=== PATIENT | female | born 1995 | race African-American/Black ===

== ENCOUNTER 2017-06-05 11:32 | Emergency (ER) | payer OTHER ==
[2017-06-05] MEDS ORDERED: Ketorolac INJ* 60 MG/2 ML VIAL IM ONE (13:47)
[2017-06-05] MEDS ORDERED: HYDROcodone/ACETAMIN 5-325 MG* 1 TAB PO ONE (13:47)
--- NOTE | 2017-06-05 13:59 | ED ---
Throat Pain/Nasal Congestion - HPI Summary HPI Summary: Pt here w/ Lt face swelling and pain x 5 days. Saw PCP 2 days ago and started on clindamycin. No relief. Tastes something in her mouth. Feels pain moving into ear and neck here - associated DELEON. Chills and "hotflashes" - no oscar fever to report. Not eating much d/t pain - drinking water. No trouble swallowing or breathing. Denies dental prior to event or now. Tried ibuprofen, acetaminophen and tea bag compress in mouth over affected tissue w/o relief. She had some left over tylenol #3 which helped some. - History of Current Complaint Chief Complaint: EDDentalPain Time Seen by Provider: 06/05/17 13:31 Hx Obtained From: Patient - Allergies/Home Medications Allergies/Adverse Reactions: Allergies Allergy/AdvReac Type Severity Reaction Status Date / Time No Known Allergies Allergy Verified 06/26/16 19:48 PMH/Surg Hx/FS Hx/Imm Hx Previously Healthy: Yes Respiratory History: Reports: Hx Asthma - well controlled, Hx Seasonal Allergies - takes anti-histamines PRN Sensory History: Denies: Hx Contacts or Glasses Opthamlomology History: Denies: Hx Contacts or Glasses Infectious Disease History: No Infectious Disease History: Denies: Traveled Outside the [place] in Last 30 Days - Family History Known Family History: Positive: Unknown - Social History Occupation: Employed Part-time Lives: Alone Alcohol Use: Rare - last drink > 1 year ago Hx Substance Use: No Substance Use Type: Reports: None Hx Tobacco Use: Yes Length of Time of Smoking/Using Tobacco: "couple black and mild occassionally" Review of Systems Constitutional: Other - see HPI Eyes: Negative - no ocular pain Negative: Drainage, Erythema ENT: Other - see HPI Negative: Chest Pain Negative: Shortness Of Breath Gastrointestinal: Other - see HPI Positive: Vomiting - 2 x, Nausea Positive: no symptoms reported Negative: Rash Positive: Headache - see HPI. Negative: Weakness, Paresthesia, Numbness Positive: Anxious All Other Systems Reviewed And Are Negative: Yes Physical Exam Triage Information Reviewed: Yes Vital Signs On Initial Exam: Initial Vitals Temp Pulse Resp BP Pulse Ox 98.4 F 68 20 135/74 97 06/05/17 11:40 06/05/17 11:40 06/05/17 11:40 06/05/17 11:40 06/05/17 11:40 Vital Signs Reviewed: Yes Appearance: Positive: Well-Appearing, Well-Nourished, Pain Distress Skin: Positive: Warm, Dry - no facial erythema but does have mild edema of Lt cheek region (mild bunting of nasolabial crease) Head/Face: Positive: Other - see above Eyes: Positive: Normal, EOMI, ESTEPHANIA, Conjunctiva Clear. Negative: Conjunctiva Inflammed, Discharge ENT: Positive: Hearing grossly normal, Pharynx normal - handling secretions well , TMs normal. Negative: Nasal congestion, Nasal drainage Dental: Positive: Gross Decay/Caries @ - #13 missing - pt reports h/o root canal - tooth fell out after eating chicken last month, Abscess @ - Lt upper maxilla between gingiva and buccal mucosa - fullness w/ bogginess- TTP Neck: Positive: Supple, No Lymphadenopathy, Tenderness @ - Lt side (mild) Respiratory/Lung Sounds: Positive: Clear to Auscultation, Breath Sounds Present. Negative: Stridor, Unable to speak in full sentences Cardiovascular: Positive: Normal Musculoskeletal: Positive: Normal, Strength/ROM Intact Neurological: Positive: Normal, Sensory/Motor Intact, Alert, Oriented to Person Place, Time, CN Intact II-III Psychiatric: Positive: Anxious Procedures - Incision and Drainage Site: Lt gingiva/soft tissue between maxillary dental ridge and cheek Anesthesia: Topical - lidocaine lollipop, Lidocaine - w/ epi Instrument(s): Scalpel - #11 - blood d/c - no purulent drainage Diagnostics - Vital Signs Vital Signs Temp Pulse Resp BP Pulse Ox 06/05/17 13:35 98.4 F 68 20 135/74 97 06/05/17 11:40 98.4 F 68 20 135/74 97 - Laboratory Lab Statement: Any lab studies that have been ordered have been reviewed, and results considered in the medical decision making process. Re-Evaluation - Re-Evaluation First Eval Change: Improved EENT Course/Dx - Course Course Of Treatment: Pt presents w/ Lt side cheek and gum swelling x 5 days - has bad taste in mouth. Pain. Area appears edematous and boggy so I&D was attempted w/o success. Advised pt to continue oral rinses and warm compresses to encourage drainage through openings made. Pt will complete anbx and f/u w/ dentist as directed. - Diagnoses Provider Diagnoses: Dental abscess Discharge - Discharge Plan Condition: Stable Disposition: HOME Prescriptions: Acetaminop/Codeine 30 MG TAB* [Tylenol/Codeine 30 MG TAB*] 1 tab PO Q6H PRN #20 tab MDD 4 PRN Reason: Pain Patient Education Materials: Dental Abscess (ED) Additional Instructions: Continue to rinse your mouth with warm saline water and apply hot moist compresses to swollen area on face. You may continue ibuprofen 800mg every 8 hours with food alternating with acetaminophen 650mg every 6 hours for pain. Complete antibiotics as directed. You may take tylenol with codeine as needed for breakthrough pain - DO NOT OPERATE MACHINERY WHILE TAKING. Follow-up with dentist in next 2 days -call today to schedule appointment. *if you develop difficulty breathing or swallowing or pain with eye movements, fever, return to ED
[2017-06-05 15:59] VITALS: BP 124/64
== END 2017-06-05 15:55 | disposition home or self-care (01) ==
LOC: ED 11:32
DX: K04.7 Periapical abscess without sinus (principal); R11.2 Nausea with vomiting, unspecified; R51 Headache
CPT/HCPCS: 96372; 99282; J1885

== ENCOUNTER 2017-06-21 09:38 | Emergency (ER) | payer OTHER ==
[2017-06-21] MEDS ORDERED: Diazepam TAB(*) 5 MG PO ONE (10:28)
[2017-06-21] MEDS ORDERED: Ketorolac INJ* 60 MG/2 ML VIAL IM ONE (10:28)
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
--- NOTE | 2017-06-21 12:23 | RAD ---
INDICATION: Back pain. COMPARISON: None. TECHNIQUE: 5 views of the lumbar spine were obtained. FINDINGS: The vertebra are in normal alignment. No fracture is seen. Disc spaces appear maintained. . IMPRESSION: No evidence of fracture or subluxation.
[2017-06-21 12:45] VITALS: BP 130/74
== END 2017-06-21 12:45 | disposition home or self-care (01) ==
LOC: ED 09:38
DX: S39.012A Strain of muscle, fascia and tendon of lower back, initial encounter (principal); F17.200 Nicotine dependence, unspecified, uncomplicated; X50.0XXA Overexertion from strenuous movement or load, initial encounter; Y93.89 Activity, other specified; Y92.9 Unspecified place or not applicable
CPT/HCPCS: 72110; 96372; 99283; A9270-GY; J1885

== ENCOUNTER 2017-10-31 06:48 | Emergency (ER) | payer OTHER ==
[2017-10-31] MEDS ORDERED: Ketorolac INJ* 30 MG/ML 1 ML VIAL IV PUSH ONE (07:21)
[2017-10-31] MEDS ORDERED: Ondansetron INJ* 2 MG/ML VIAL IV ONE (07:21)
[2017-10-31] MEDS ORDERED: Morphine INJ* 4 MG/ML 1 ML CARPUJECT IV ONE (07:21)
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
[2017-10-31 08:47] LABS: Hematocrit 35 % (35-47); Hemoglobin 11.3 g/dl (12.0-16.0); Mean Corpuscular HGB Conc 33 g/dl (31-36); Mean Corpuscular Hemoglobin 26 pg (27-31); Mean Corpuscular Volume 79 fL (80-97); Mean Platelet Volume 8 um3 (7.4-10.4); Red Blood Count 4.38 10^6/ul (4.0-5.4); Red Cell Distribution Width 13 % (10.5-15); White Blood Count 5.9 10^3/ul (3.5-10.8)
[2017-10-31 09:05] LABS: ALT 9 U/L (7-52); AST 15 U/L (13-39); Albumin 3.9 g/dL (3.2-5.2); Alkaline Phosphatase 63 U/L (34-104); Anion Gap 4 mmol/L (2-11); Blood Urea Nitrogen 8 mg/dL (6-24); C Reactive Protein 1.67 mg/L (< 5.00); CO2 Carbon Dioxide 25 mmol/L (22-32); Calcium 9.2 mg/dL (8.6-10.3); Chloride 107 mmol/L (101-111); EGFR African American 113.3 (>60); EGFR Non-African American 88.1 (>60); Globulin 2.8 g/dL (2-4); Glucose 101 mg/dL (70-100); Lipase 16 U/L (11.0-82.0); Potassium 3.8 mmol/L (3.5-5.0); Sodium 136 mmol/L (133-145); Total Protein 6.7 g/dL (6.4-8.9)
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
[2017-10-31 10:48] VITALS: BP 104/51
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
== END 2017-10-31 10:48 | disposition home or self-care (01) ==
LOC: ED 06:48
DX: R10.2 Pelvic and perineal pain (principal); F17.210 Nicotine dependence, cigarettes, uncomplicated
CPT/HCPCS: 36415; 72192; 72220; 80053; 83690; 84702; 85025; 86140; 96374; 96375; 99283; J1885; J2270; J2405

== ENCOUNTER 2018-06-12 14:32 | Emergency (ER) | payer OTHER ==
[2018-06-12 14:56] VITALS: BP 127/71
--- NOTE | 2018-06-12 15:11 | UC ---
Skin Complaint HPI - HPI Summary HPI Summary: 22 yo female 3 days s/p insect sting to left breast itchy painful also out of asthma meds and feels tight also smell drainage from cyst below left ear - History of Current Complaint Chief Complaint: UCSkin Time Seen by Provider: 06/12/18 14:49 Stated Complaint: BEE STING, AND RASH Hx Obtained From: Patient Hx Last Menstrual Period: 06/12/18 Onset/Duration: Sudden Onset Skin Exposure Onset/Duration: Days Ago Onset Severity: Moderate Current Severity: Moderate Pain Intensity: 6 Pain Scale Used: 0-10 Numeric Location: Discrete Character: Pain, Raised, Painful Aggravating Factor(s): Touch Alleviating Factor(s): Nothing Associated Signs & Symptoms: Positive: Wheezing - out if in Related History: Insect Bite/Sting - Allergy/Home Medications Allergies/Adverse Reactions: Allergies Allergy/AdvReac Type Severity Reaction Status Date / Time environmental Allergy Congestion Uncoded 06/12/18 14:58 Review of Systems Constitutional: Negative Skin: Negative Eyes: Negative ENT: Negative Respiratory: Cough Cardiovascular: Negative Gastrointestinal: Negative Genitourinary: Negative Motor: Negative Neurovascular: Negative Musculoskeletal: Negative Neurological: Negative Psychological: Negative Is Patient Immunocompromised?: No All Other Systems Reviewed And Are Negative: Yes PMH/Surg Hx/FS Hx/Imm Hx Previously Healthy: Yes Respiratory History: Asthma Other History Of: Negative For: Anticoagulant Therapy - Surgical History Surgical History: None - Family History Known Family History: Positive: Unknown, Diabetes - grandmother, Renal Disease - Mother: renail failure - Social History Alcohol Use: None Substance Use Type: None Smoking Status (MU): Former Smoker Length of Time of Smoking/Using Tobacco: "couple black and mild occassionally" Physical Exam Triage Information Reviewed: Yes Appearance: Well-Appearing, No Pain Distress, Well-Nourished Vital Signs: Initial Vital Signs Temp 97.1 F 06/12/18 14:50 Pulse 77 06/12/18 14:50 Resp 18 06/12/18 14:50 BP 127/71 06/12/18 14:50 Pulse Ox 99 06/12/18 14:50 Eyes: Positive: Conjunctiva Clear ENT: Positive: Hearing grossly normal, Uvula midline. Negative: Nasal congestion, Nasal drainage, Tonsillar exudate, Trismus, Muffled voice, Hoarse voice Respiratory: Positive: Lungs clear, Normal breath sounds, No respiratory distress, Wheezing - with forced expiration only Cardiovascular: Positive: RRR, No Murmur Neurological: Positive: Alert Psychological Exam: Normal Skin Exam: Other - insect sting left breast with mild localized swelling/redness Skin: Positive: Other - impetiginous rash below left ear Course/Dx - Diagnoses Provider Diagnoses: insect sting. refill of asthma meds. skin infection below left ear Discharge - Sign-Out/Discharge Documenting (check all that apply): Patient Departure - Discharge Plan Condition: Stable Disposition: HOME Prescriptions: Albuterol HFA INHALER* [Ventolin HFA Inhaler*] 2 puff INH QID #1 mdi Mupirocin 2% OINT* [Bactroban 2 % Oint*] 1 applic TOPICAL TID #1 tube predniSONE [Deltasone 20 MG TAB] 40 mg PO DAILY #10 tab Patient Education Materials: Insect Bite or Sting (ED), Bronchospasm (ED) Referrals: Diane Hatfield [Primary Care Provider] - 5 Days (if not better) - Billing Disposition and Condition Condition: STABLE Disposition: Home
== END 2018-06-12 15:38 | disposition home or self-care (01) ==
LOC: UCEAST 14:32
DX: T63.481A Toxic effect of venom of other arthropod, accidental (unintentional), initial encounter (principal); L08.89 Other specified local infections of the skin and subcutaneous tissue; Z76.0 Encounter for issue of repeat prescription; J45.909 Unspecified asthma, uncomplicated; Y92.9 Unspecified place or not applicable; Z91.09 Other allergy status, other than to drugs and biological substances; Z87.891 Personal history of nicotine dependence
CPT/HCPCS: 99212; G0463

== ENCOUNTER 2018-08-06 12:27 | Emergency (ER) | payer OTHER ==
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
[2018-08-06 13:06] VITALS: BP 0/0
== END 2018-08-06 13:05 | disposition home or self-care (01) ==
LOC: ED 12:27
DX: J06.9 Acute upper respiratory infection, unspecified (principal); S00.35XA Superficial foreign body of nose, initial encounter; L01.00 Impetigo, unspecified; R21 Rash and other nonspecific skin eruption; R50.9 Fever, unspecified; L30.9 Dermatitis, unspecified; R05 Cough; Z87.891 Personal history of nicotine dependence; R09.89 Other specified symptoms and signs involving the circulatory and respiratory systems; X58.XXXA Exposure to other specified factors, initial encounter; Y92.9 Unspecified place or not applicable
CPT/HCPCS: 99282

== ENCOUNTER 2018-08-10 17:23 | Emergency (ER) | payer OTHER ==
[2018-08-10] MEDS ORDERED: Albuterol 2.5 MG/3 ML NEB.SOL* (0.083%) INH ONE (19:07)
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
[2018-08-10 20:02] VITALS: BP 128/69
--- NOTE | 2018-08-11 07:48 | RAD ---
Indication: Left nostril foreign body 3 views of the nasal bones demonstrate normal enhancement in the right liver. No evidence of radiopaque foreign body is identified in the nasal passages. IMPRESSION: No evidence of radiopaque foreign body is noted in the nasal passages. R0
== END 2018-08-10 20:01 | disposition home or self-care (01) ==
LOC: ED 17:23
DX: S00.35XA Superficial foreign body of nose, initial encounter (principal); X58.XXXA Exposure to other specified factors, initial encounter; Y92.9 Unspecified place or not applicable
CPT/HCPCS: 70160; 99281

== ENCOUNTER 2018-10-27 12:28 | Emergency (ER) | payer OTHER ==
[2018-10-27] MEDS ORDERED: Ondansetron INJ* 2 MG/ML VIAL IV ONE (17:16)
[2018-10-27] MEDS ORDERED: NS 0.9% 1000 ML* 1,000 ML IV ONE (17:16)
[2018-10-27] MEDS ORDERED: Albuterol/Ipratropium NEB.SOL* Albuterol 2.5 MG/Ipratropium 0.5 MG 3 ML INH ONE (17:17)
[2018-10-27] MEDS ORDERED: Acetaminophen TAB* 325 MG PO ONE (17:17)
[2018-10-27 18:10] LABS: ABS Basophils 0 10^3/ul (0-0.2); ABS Eosinophils 0.1 10^3/ul (0-0.6); ABS Monocytes 0.5 10^3/ul (0-0.8); ABS Neutrophils 1.7 10^3/ul (1.5-7.7); ABS Nucleated RBC 0 10^3/ul; Hematocrit 38 % (35-47); Hemoglobin 12.3 g/dl (12.0-16.0); Lymphocyte % 46.1 %; Mean Corpuscular HGB Conc 32 g/dl (31-36); Mean Corpuscular Hemoglobin 26 pg (27-31); Mean Corpuscular Volume 80 fL (80-97); Mean Platelet Volume 8.5 fL (7.4-10.4); Nucleated Red Blood Cells % 0.1; Platelet Count 242 10^3/ul (150-450); Red Blood Count 4.72 10^6/ul (4.00-5.40); Red Cell Distribution Width 14 % (10.5-15); White Blood Count 4.3 10^3/ul (3.5-10.8)
[2018-10-27 18:24] LABS: EGFR Non-African American 94.2 (>60)
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
[2018-10-27 19:07] LABS: Urine Appearance Cloudy; Urine Blood Negative (Negative); Urine Color Yellow; Urine Ketones Negative (Negative); Urine Protein Negative (Negative); Urine Red Blood Cell 1+(3-5/hpf) (Absent); Urine Specific Gravity 1.013 (1.010-1.030); Urine Urobilinogen Negative (Negative); Urine White Blood Cell 2+(11-20/hpf) (Absent)
[2018-10-27 19:25] VITALS: BP 126/57
== END 2018-10-27 19:24 | disposition home or self-care (01) ==
LOC: ED 12:28
DX: B34.9 Viral infection, unspecified (principal); N39.0 Urinary tract infection, site not specified; R11.2 Nausea with vomiting, unspecified; R06.02 Shortness of breath; Z87.891 Personal history of nicotine dependence; L02.91 Cutaneous abscess, unspecified; R51 Headache
CPT/HCPCS: 36415; 71046; 80053; 81003; 81015; 83690; 84702; 85025; 86140; 87086; 99283; A9270-GY; J2405

== ENCOUNTER 2019-08-08 21:16 | Emergency (ER) | payer OTHER ==
[2019-08-08] MEDS ORDERED: Albuterol/Ipratropium NEB.SOL* Albuterol 2.5 MG/Ipratropium 0.5 MG 3 ML INH ONE (21:50)
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
[2019-08-08 22:22] LABS: ABS Eosinophils 0.1 10^3/ul (0-0.6); ABS Lymphocytes 1.8 10^3/ul (1.0-4.8); ABS Monocytes 0.4 10^3/ul (0-0.8); ABS Neutrophils 1.5 10^3/ul (1.5-7.7); Eosinophil % 3.8 %; Hematocrit 35 % (35-47); Hemoglobin 11.5 g/dL (12.0-16.0); Lymphocyte % 46.2 %; Mean Corpuscular HGB Conc 33 g/dL (31-36); Mean Corpuscular Hemoglobin 26 pg (27-31); Mean Corpuscular Volume 80 fL (80-97); Mean Platelet Volume 7.7 fL (7.4-10.4); Nucleated Red Blood Cells % 0.2; Platelet Count 245 10^3/uL (150-450); Red Blood Count 4.38 10^6 /uL (3.70-4.87); Red Cell Distribution Width 14 % (10-15); White Blood Count 3.9 10^3/uL (3.5-10.8)
[2019-08-08 22:32] LABS: ALT 10 U/L (7-52); AST 15 U/L (13-39); Albumin 3.8 g/dL (3.2-5.2); Albumin/Globulin Ratio 1.5 (1-3); Alkaline Phosphatase 57 U/L (34-104); Anion Gap 4 mmol/L (2-11); BUN/Creatinine Ratio 8.9 (8-20); Blood Urea Nitrogen 8 mg/dL (6-24); C Reactive Protein < 1.00 mg/L (<8.01); CO2 Carbon Dioxide 24 mmol/L (22-32); Calcium 8.5 mg/dL (8.6-10.3); Chloride 110 mmol/L (101-111); EGFR African American 92.3 (>60); EGFR Non-African American 76.3 (>60); Globulin 2.5 g/dL (2-4); Glucose 94 mg/dL (70-100); Potassium 3.8 mmol/L (3.5-5.0); Sodium 138 mmol/L (135-145); Total Protein 6.3 g/dL (6.4-8.9)
[2019-08-08 22:39] LABS: HCG Pregnancy < 0.60 mIU/mL
[2019-08-08] MEDS ORDERED: NS 0.9% 1000 ML** 1,000 ML IV ONE (22:50)
[2019-08-08 23:08] LABS: HIV 4th Generation Nonreactive (Nonreactive)
[2019-08-08 23:20] LABS: TSH (Thyroid Stimulating Horm) 1.23 mcIU/mL (0.34-5.60)
[2019-08-08 23:31] VITALS: BP 110/70
[2019-08-08] MEDS ORDERED: Albuterol HFA INHALER* 8 gm MDI INH SCH (23:45)
== END 2019-08-08 23:51 | disposition home or self-care (01) ==
LOC: ED 21:16
DX: R07.89 Other chest pain (principal); J45.909 Unspecified asthma, uncomplicated; E86.0 Dehydration; M54.9 Dorsalgia, unspecified; R42 Dizziness and giddiness; I49.9 Cardiac arrhythmia, unspecified; Z87.891 Personal history of nicotine dependence
CPT/HCPCS: 36415; 71046; 80053; 84443; 84484; 84702; 85025; 86140; 87389; 93005; 96360; 99283; A9270-GY

== ENCOUNTER 2024-07-24 14:34 | Inpatient (IN) ==
[2024-07-24] MEDS ORDERED: Oxytocin in LR 20,000 MILLI.UNIT/1,000 ML BAG IV ONE (14:51)
[2024-07-24] MEDS ORDERED: Glycerin ADULT 2.4 gm SUPP PR PRN (15:33)
[2024-07-24] MEDS: Oxytocin in LR 20,000 MILLI.UNIT/1,000 ML BAG IV SCH (16:05)
[2024-07-24 17:09] LABS: HIV 4th Generation Nonreactive (Nonreactive)
[2024-07-24] MEDS: Lactated Ringers 1000 ml BAG 1,000 ML IV SCH (19:14)
[2024-07-24] MEDS: Witch Hazel PAD JAR TOPICAL PRN (19:43)
[2024-07-24] MEDS: Dibucaine 1% OINT 28.35 GM TUBE PR PRN (19:43)
[2024-07-24 20:35] LABS: Urine Benzodiazepine Screen None Detected (None Detect); Urine Opiates Screen Presumptive Positive (None Detect)
[2024-07-24] MEDS: Lidocaine 1% VIAL 10 MG/ML 30 ML VIAL ONE (23:27)
[2024-07-25 05:33] LABS: Hepatitis B Surface Antigen Nonreactive (Nonreactive)
[2024-07-25 05:50] LABS: Hepatitis C Antibody Negative (Negative)
[2024-07-25 07:00] LABS: ABS Basophils 0.1 10^3/uL (0.0-0.1); ABS Eosinophils 0.1 10^3/uL (0.0-0.5); ABS Lymphocytes 2.5 10^3/uL (1.0-4.8); ABS Neutrophils 5.2 10^3/uL (1.5-7.6); Eosinophil % 1.1 %; Hematocrit 32.2 % (35-45); Hemoglobin 10.5 g/dL (11.5-14.3); Lymphocyte % 27.8 %; Mean Corpuscular Hemoglobin 26.6 pg (27-33); Mean Corpuscular Hgb Conc 32.5 g/dL (31-36); Mean Corpuscular Volume 81.7 fL (80-97); Mean Platelet Volume 7.8 fL (7.5-11.2); Platelet Count 244 10^3/uL (150-450); Red Blood Count 3.94 10^6/uL (3.63-4.92); Red Cell Distribution Width 15.3 % (12-17)
[2024-07-26 07:32] VITALS: BP 99/41
== END 2024-07-26 14:00 | disposition home or self-care (01) | DRG 807 ==
LOC: MCHOBOUT 14:34 → MCHOB 14:47
PROVIDERS: ADMIT Obstetrics & Gynecology; ATTEND Obstetrics & Gynecology